=== PATIENT | male | born 1990 | race Caucasian/White ===

== ENCOUNTER 2016-03-21 12:09 | Emergency (ER) | payer OTHER ==
[~2016-03-21] VITALS: Ht 172.7 cm; Wt 79.4 kg
[~2016-03-21 12:09] MED LIST: ALPRAZOLAM1 M2 PO; ALPRAZOLAM1 MG PO; ALPRAZOLAM2 M2 PO; DEXTROAMP-AMPHE20 MG PO; DIAZEPAM5 M1 PO; PROPRANOLOL HCL20 M1 PO; RISPERDAL0.5 M1 PO; RISPERIDONE0.5 M1 PO; SUBOXONE 8 MG-21 TAB SL; SYNTHROID25 MCG PO; ZOLPIDEM TARTRA10 MG PO
[2016-03-21 12:12] VITALS: BP 132/71
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
[2016-03-21] MEDS ORDERED: DICLOFENAC SODI50 M3 PO (12:51)
[2016-03-21] MEDS ORDERED: CYCLOBENZAPRINE5 M2 PO (12:51)
== END 2016-03-21 12:58 ==
LOC: ERH 12:09
DX: S39.012A Strain of muscle, fascia and tendon of lower back, initial encounter (principal); V47.6XXA Car passenger injured in collision with fixed or stationary object in traffic accident, initial encounter